=== PATIENT | female | born 1940 | race Caucasian/White ===

== ENCOUNTER 2022-05-29 13:41 | Outpatient (CLI) | payer MEDICARE, SELFPAY ==
[2022-05-29 10:33] LABS: Chloride* 101 mmol/L (96-114); Potassium* 3.8 mmol/L (3.6-5.1); Sodium* 138 mmol/L (135-149)
[2022-05-29 10:35] LABS: Cholesterol* 207 mg/dL (90-199)
[2022-05-29 10:36] LABS: Blood Urea Nitrogen* 19 mg/dL (7-30); Calcium* 10.3 mg/dL (8.4-10.6); Carbon Dioxide* 28 mmol/L (20-32); Creatinine* 0.9 mg/dL (0.5-1.5); Estimated Glomerular Filt Rate 65 ml/min; Glucose* 112 mg/dL (60-115); Triglycerides* 128 mg/dL (40-149)
[2022-05-29 10:37] LABS: HDL Cholesterol* 73 mg/dL (>=50); LDL Cholesterol Calculated 108 mg/dL (<100)
== END 2022-05-29 13:42 | disposition home or self-care (01) ==
PROVIDERS: PCP Family Medicine; Visit Provider Family Medicine
DX: E78.00 Pure hypercholesterolemia, unspecified (principal); I10 Essential (primary) hypertension; M81.0 Age-related osteoporosis without current pathological fracture
CPT/HCPCS: 80048; 80061

== ENCOUNTER 2022-06-19 09:48 | Outpatient (RCR) | payer MEDICARE, SELFPAY ==
[2022-06-19 10:02] VITALS: BP 110/71; PULSE 78; RESP 16; TEMP 36.4; O2SAT 94
[2022-06-19] MEDS: DENOSUMAB 60 MG/ML SYRINGE SUBCUT (10:24)
--- NOTE | 2022-12-09 10:07 | ONC.NURNOTE ---
Pt called requesting to schedule labs/Prolia. LM for Dr. Fuentes to send updated orders.
== END 2022-12-16 23:59 | disposition home or self-care (01) ==
LOC: CCIC 09:48
PROVIDERS: PCP Family Medicine; Referring Provider Family Medicine; Visit Provider Family Medicine
DX: M81.0 Age-related osteoporosis without current pathological fracture (principal)
CPT/HCPCS: 96372; J0897

== ENCOUNTER 2022-12-11 07:55 | Outpatient (CLI) | payer MEDICARE, SELFPAY ==
--- NOTE | 2022-12-11 08:15 | CRLHL7_ITS ---
For Patients: As a result of the Century Cures Act, medical imaging exams and procedure reports are released immediately into your electronic medical record. You may view this report before your referring provider. If you have questions, please contact your health care provider. BILATERAL SCREENING MAMMOGRAM WITH COMPUTER-AIDED DETECTION AND TOMOSYNTHESIS TECHNIQUE: CC and MLO views were obtained. These mammographic images have been obtained using full-field digital technique. These mammographic images were interpreted with the benefit of computer-aided detection. Breast Tomosynthesis was used in this interpretation. COMPARISON FILM: 12/05/21, 12/04/20, 05/18/19. FINDINGS: The breasts are heterogeneously dense, which may obscure small masses IMPRESSION: There is no radiographic evidence for malignancy. ASSESSMENT: BI-RADS Category 1: Negative RECOMMENDATION: Routine screening mammogram in 1 year. A lay language report of this examination will be provided to the patient. Hrei Rollins M.D. Diagnostic Radiologist [email or web address] KAILEY/Dictated by: Heri Rollins MD @ 12/11/2022 12:29:00 PM (Electronically Signed)
== END 2022-12-11 07:56 | disposition home or self-care (01) ==
LOC: MAMMO 07:57
PROVIDERS: PCP Family Medicine; Visit Provider Family Medicine
DX: Z12.31 Encounter for screening mammogram for malignant neoplasm of breast (principal); R92.2 Inconclusive mammogram
CPT/HCPCS: 77063; 77067

== ENCOUNTER 2022-12-24 10:55 | Emergency (ER) | payer OTHER, MEDICARE, SELFPAY ==
[2022-12-24] VITALS (41 sets, daily range): BP systolic 125–161; BP diastolic 59–133; PULSE 65–81; O2SAT 91–97
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
--- NOTE | 2022-12-24 11:49 | ED.NURSE ---
and son at bedside
[2022-12-24 11:53] LABS: Basophils Absolute Auto 0.05 K/uL (0.00-0.30); Basophils Percent Auto 0.8 % (0.0-3.0); Eosinophils Absolute Auto 0.08 K/uL (0.00-0.50); Eosinophils Percent Auto 1.2 % (0.0-7.0); Hematocrit 41.6 % (33.0-51.0); Hemoglobin* 13.6 gm/dL (12.0-16.0); Immature Granulocytes Abs Auto 0.08 K/uL (0.00-0.30); Immature Granulocytes Pct Auto 1.2 %; Lymphocytes Percent Auto 13.4 % (20-44); Mean Corpuscular HGB Conc 33 gm/dL (32-36); Mean Corpuscular Hemoglobin 29 pg (26-34); Mean Corpuscular Volume 89 fL (80-100); Monocytes Percent Auto 7.5 % (0.0-11.0); Neutrophils Percent Auto 75.9 % (42.0-72.0); Platelet Count* 158 K/uL (140-440); RDW Coefficient of Variation % 14.5 % (11.5-15.5); Red Blood Count 4.69 m/uL (4.00-5.20); White Blood Count* 6.41 K/uL (4.50-11.00)
[2022-12-24 11:54] LABS: Slide Review Reflex No
[2022-12-24 12:59] LABS: Chloride* 103 mmol/L (96-114); Potassium* 3.5 mmol/L (3.6-5.1); Sodium* 141 mmol/L (135-149)
[2022-12-24 13:02] LABS: Blood Urea Nitrogen* 13 mg/dL (7-30); Calcium* 9.2 mg/dL (8.4-10.6); Carbon Dioxide* 32 mmol/L (20-32); Creatinine* 0.8 mg/dL (0.5-1.5); Estimated Glomerular Filt Rate 74 ml/min; Glucose* 95 mg/dL (60-115)
--- NOTE | 2022-12-24 13:16 | ED.NURSE ---
This development writer assessed pt for pain after assisting her to use the bedpan. Pt states she has pain in her neck at 6/10 with movement. Denies pain when remaining still. Pt stated she did not want pain medication at this time. This development writer will continue to reassess.
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
--- NOTE | 2022-12-24 15:45 | ED.NURSE ---
C-collar removed by Dr. Philip.
[2022-12-24] MEDS: HYDROmorphone 0.5 mg/0.5 ml inj 0.2 MG IVP (15:54)
== END 2022-12-24 19:35 | disposition home or self-care (01) ==
PROVIDERS: Emergency Provider Emergency Medicine Emergency Medical Services; PCP Family Medicine
DX: M54.2 Cervicalgia (principal); V43.62XA Car passenger injured in collision with other type car in traffic accident, initial encounter
CPT/HCPCS: 36415; 70450; 71260; 72125; 72146; 74177; 80048; 85025; 93005; 99284; 99285; 99291; G0390; J1170; Q9967

== ENCOUNTER 2023-01-09 09:06 | Outpatient (RCR) | payer MEDICARE, SELFPAY ==
--- NOTE | 2022-12-31 11:45 | URNOTE ---
REceived request for prior auth for [employer] ([id number]). Pt has medicare and AARP supplement. Prior authorization is not required as services are based on medical necessity and follow medicare guidelines
[2023-01-09 09:16] VITALS: BP 122/77; PULSE 87; RESP 16; TEMP 36.2; O2SAT 94
[2023-01-09] MEDS: DENOSUMAB 60 MG/ML SYRINGE SUBCUT (09:40)
== END 2023-07-08 23:59 | disposition home or self-care (01) ==
LOC: CCIC 09:06
PROVIDERS: PCP Family Medicine; Referring Provider Family Medicine; Visit Provider Family Medicine
DX: M81.0 Age-related osteoporosis without current pathological fracture (principal)
CPT/HCPCS: 96372; J0897

== ENCOUNTER 2023-04-20 09:27 | Inpatient (IN) | payer MEDICARE, SELFPAY ==
[2023-04-20] VITALS (8 sets, daily range): BP systolic 124–134; BP diastolic 62–99; PULSE 63–91; RESP 14–18; TEMP 36.1–36.7; O2SAT 92–98; BMI 25.7
--- NOTE | 2023-04-20 10:10 | CRLHL7_ITS ---
For Patients: As a result of the Century Cures Act, medical imaging exams and procedure reports are released immediately into your electronic medical record. You may view this report before your referring provider. If you have questions, please contact your health care provider. INDICATION: Abdominal pain, weakness. History of kidney stones, appendectomy, cholecystectomy. TECHNIQUE: CT of the abdomen and pelvis without intravenous contrast. Coronal and sagittal reconstructions. COMPARISON: CT chest, abdomen, pelvis 12/24/2022. FINDINGS: The unenhanced liver, spleen, pancreas, and adrenal glands are normal in appearance. Cholecystectomy. No biliary dilation. Bilateral renal cortical scarring. No hydronephrosis or ureteral dilation. No obstructing urinary calculi identified, however the distal ureters and pelvic structures are obscured by extensive streak artifact. Tiny bilateral nonobstructing renal caliceal stones. The visualized bladder demonstrates no significant wall thickening. Small calcified uterine fibroid. No obvious adnexal mass. No small bowel dilation. Mild amount of stool throughout the colon. Appendectomy. No intraperitoneal free air or fluid. No lymphadenopathy. Aortoiliac vascular calcifications. Small fat containing umbilical hernia. Degenerative changes of the spine. Chronic superior endplate compression fracture of T11. Mild anterolisthesis of L4 on L5. Bilateral total hip arthroplasties. The lung bases are clear. IMPRESSION: 1. No acute findings in the abdomen or pelvis on this noncontrast exam. 2. Tiny bilateral nonobstructing renal caliceal stones. No hydronephrosis. 3. Pelvic structures are suboptimally visualized due to extensive streak artifact from bilateral hip hardware. Please note that all CT scans at this facility use dose modulation, iterative reconstruction, and/or weight-based dosing when appropriate to reduce radiation dose to as low as reasonably achievable. Dictated by Ivone Watts MD @ 04/20/2023 2:46:45 PM (Electronically Signed)
[2023-04-20] MEDS: 0.9 % SODIUM CHLORIDE 500 ML 500 ML IV (11:10)
--- NOTE | 2023-04-20 11:11 | ED_ITS ---
HPI - General Adult General Date Seen: 04/20/23 Chief complaint: Weakness Stated complaint: several falls / confused Time Seen by Provider: 04/20/23 09:38 Source: patient and family Mode of arrival: ambulatory Limitations: no limitations History of Present Illness HPI narrative: Patient is an 82-year-old here with son and for evaluation of abdominal pain weakness mild confusion for the past several days. Problems started on , they present on Thursday. She has had several falls, has not had any injuries. She says she has had pain across her abdomen, decreased appetite. No vomiting. No fevers. No diarrhea. No black or bloody stools. She has a history of cholecystectomy and appendectomy, has had remote colonoscopy with polyps no other findings. Falls have been caused by loss of balance. She has been able to walk with a walker but despite the walker she has had several falls. This is unusual for her according to family. They note that she has seemed more confused as well, she is able to provide a reasonable history for me, answers questions appropriately. She has chronic pain in her right hip, I do see a prior history of trochanteric bursitis. Related Data Home Medications Medication Instructions Recorded Confirmed aspirin 81 mg chewable tablet 1 tab PO DAILY 08/22/22 03/17/23 cholecalciferol (vitamin D3) 25 1,000 unit PO BID 08/22/22 03/17/23 mcg (1,000 unit) capsule denosumab 60 mg/mL subcutaneous 60 mg subcut DIRECTED 08/22/22 03/17/23 syringe multivitamin 1 tab PO QAM 08/22/22 03/17/23 antiarthritic combination no.2 900 900 mg PO QDAY 10/01/22 03/17/23 mg tablet (glucosamine-chondroitin) calcium carbonate 500 mg calcium 500 mg PO BID 10/01/22 03/17/23 (1,250 mg) chewable tablet (Calcium 500) Previous Rx's Medication Instructions Recorded lovastatin 20 mg tablet 20 mg PO QDAY #90 tabs 06/09/22 cyclobenzaprine 10 mg tablet 10 mg PO TID #15 tabs 12/24/22 gabapentin 300 mg capsule 300 - 600 mg (1 - 2 x 300 mg) PO 01/19/23 QID #450 caps zolpidem 10 mg tablet 10 mg PO QHS PRN sleep #30 tabs 01/23/23 paroxetine HCl 20 mg tablet (Paxil) 20 mg PO QDAY #30 tabs 02/12/23 finasteride 5 mg tablet 2.5 mg (1/2 x 5 mg) PO QDAY #45 03/24/23 tabs Allergies Allergy/AdvReac Type Severity Reaction Status Date / Time No Known Drug Allergies Allergy Verified 03/17/23 11:30 Review of Systems Status of ROS: Reports: 10 or more systems reviewed and unremarkable except as noted in History and below [facility] Medical History (Updated 03/24/23 @ 10:20 by Terri Brice ~ PLATEMAKER, PLATEMAKER) Hair loss ?L65.9 - Nonscarring hair loss, unspecified (ICD-10) Health care directive on file ?Z78.9 - Other specified health status (ICD-10) Bilateral primary osteoarthritis of knee ?M17.0 - Bilateral primary osteoarthritis of knee (ICD-10) Hypertension ?I10 - Essential (primary) hypertension (ICD-10) Peripheral neuropathy ?G62.9 - Polyneuropathy, unspecified (ICD-10) History of colonic polyps ?Z86.010 - Personal history of colonic polyps (ICD-10) Generalized anxiety disorder ?F41.1 - Generalized anxiety disorder (ICD-10) Gastroesophageal reflux disease ?K21.9 - Gastro-esophageal reflux disease without esophagitis (ICD-10) Osteoporosis ?M81.0 - Age-related osteoporosis without current pathological fracture (ICD- 10) History of renal calculi ?Z87.442 - Personal history of urinary calculi (ICD-10) Major depression, recurrent ?F33.9 - Major depressive disorder, recurrent, unspecified (ICD-10) Hyperlipidemia ?E78.5 - Hyperlipidemia, unspecified (ICD-10) Insomnia ?G47.00 - Insomnia, unspecified (ICD-10) Chronic low back pain ?M54.50 - Low back pain, unspecified (ICD-10) ?G89.29 - Other chronic pain (ICD-10) Surgical History (Updated 10/13/22 @ 16:30 by Danielle Rain ~ DRAFTING ENGINEER, DRAFTING ENGINEER) History of hemilaminectomy (08/13/04) ?Z98.890 - Other specified postprocedural states (ICD-10) History of total hip replacement (2009) ?Z96.649 - Presence of unspecified artificial hip joint (ICD-10) History of cholecystectomy (04/2011) ?Z90.49 - Acquired absence of other specified parts of digestive tract (ICD- 10) History of cervical spinal arthrodesis (01/23/14) ?Z98.1 - Arthrodesis status (ICD-10) History of shoulder surgery (10/2010) ?Z98.890 - Other specified postprocedural states (ICD-10) History of lumbar surgery (2004) ?Z98.890 - Other specified postprocedural states (ICD-10) History of lithotripsy ?Z98.890 - Other specified postprocedural states (ICD-10) History of section ?Z98.891 - History of uterine scar from previous surgery (ICD-10) History of bunionectomy of right great toe (1999) ?Z98.890 - Other specified postprocedural states (ICD-10) History of appendectomy (2009) ?Z90.49 - Acquired absence of other specified parts of digestive tract (ICD- 10) Social History (Updated 08/23/22 @ 16:23 by Heri Fuentes MD) Narrative: , retired, non-smoker, three kids Smoking Status: Never smoker Do you use any of these nicotine containing products: None How often do you have a drink containing alcohol: never AUDIT-C Alcohol total score: 0 Non-prescribed substance use: denies use Little interest or pleasure in doing things: not at all Feeling down, depressed, or hopeless: not at all Exam Narrative: Exam Narrative: Vital signs as noted above. In general, an alert, nontoxic elderly woman. Head: Normocephalic, atraumatic. Eyes: Pupils are equal reactive. Extraocular movements are full. Conjunctivae are normal. ENT: Mucous membranes are moist. Neck: Supple without lymphadenopathy. Heart: Regular rate and rhythm. No murmur or rub. Lungs: Clear bilaterally. No increased work of breathing, crackles or wheezes. Abdomen: Soft and nondistended. Diffuse mild tenderness without rebound guarding or rigidity. Extremities: Well perfused. No edema. No calf tenderness. Pulses intact. Neurologic: Patient is alert and oriented to person and place. Speech is fluent. Face is symmetric. Moves all extremities equally. Affect: Normal. Skin: Warm and dry. Well perfused. Const: Vital Signs, click to edit/add: Vital Signs - 24 hr 04/20/23 09:37 04/20/23 12:00 04/20/23 13:30 Temperature 97.2 F L Pulse Rate [Right Pulse Oximeter] 91 85 89 Respiratory Rate 18 14 14 Blood Pressure [Ri ght Upper Arm] 134/84 125/74 133/99 H Pulse Oximetry 98 98 97 Oxygen Delivery Me thod Room Air Room Air Documenting provider has reviewed patient's vital signs: yes Course Course ED Course: Will go ahead and place an IV, hydrate with a 1000 mL of normal saline. Labs are ordered, will do CT scan to evaluate for possible diverticulitis, colitis, obstruction, etcetera. UA is pending. COVID is pending. Patient had an EKG which showed a normal sinus rhythm with a ventricular rate of 69 beats per minute, nonspecific T changes without ST segment changes. Initial lab results were pretty unremarkable, white blood cell count was normal, hemoglobin was 14.6. Initial electrolytes showed a sodium of 137 and a potassium of 3.1, BUN was slightly elevated at 44 and creatinine was mildly elevated 1.7, baseline unknown. Lactate was 1.2. It was slightly delayed but her calcium eventually came back at 16.9. LFTs were unremarkable. CRP was 1.8. Albumin notably was normal at 4.4. TSH was normal at 2.5. PTH was added on and is pending. UA fairly unremarkable, 2-5 red cells and 5-10 white blood cells, few squames. COVID was negative. Point of care troponin was 0.02. She was initially given a L normal saline and I added on a 2 L after seeing her calcium and gave her 20 mg of Lasix IV. I did talk with the hospitalist at that point, discussed calcitonin but will hold off until she gets to the floor. Etiology of her hypercalcemia is unknown. Because her GFR was only 30 she had a noncontrast CT scan of her abdomen and pelvis. By my review I did not see any significant findings. Fair portion of her pelvis is not visualized secondary to artifact from her bilateral hip arthrosis. Her again brought up to me that she has had this right hip pain, this sounds to have been going on for quite some time, and again, she is status post right hip replacement, has this history of bursitis, I do not know if that is the cause for her right hip pain or not, but reviewed with him that since this is chronic, we have not delved into this in the ER. Again there is quite a bit of artifact on the CT scan but scrolling through the bony pelvis as seen on the CT I do not see any significant findings. Patient will be admitted for treatment and further evaluation of significant hypercalcemia. Vital Signs Vital signs: Initial Vital Signs Temperature 97.2 F L 04/20/23 09:37 Temperature Source Temporal Artery Scan 04/20/23 09:37 Pulse Rate 91 04/20/23 09:37 Respiratory Rate 18 04/20/23 09:37 Blood Pressure 134/84 04/20/23 09:37 Blood Pressure Mean 100 04/20/23 09:37 Blood Pressure Position Sitting 04/20/23 09:37 Pulse Oximetry 98 04/20/23 09:37 Oxygen Delivery Method Room Air 04/20/23 09:37 Vital Signs Temperature 97.2 F L 04/20/23 09:37 Pulse Rate 91 04/20/23 09:37 Respiratory Rate 18 04/20/23 09:37 Blood Pressure 134/84 04/20/23 09:37 Pulse Oximetry 98 04/20/23 09:37 Oxygen Delivery Method Room Air 04/20/23 09:37 Temperature 97.2 F L 04/20/23 09:37 Pulse Rate 89 04/20/23 13:30 Respiratory Rate 14 04/20/23 13:30 Blood Pressure 133/99 H 04/20/23 13:30 Pulse Oximetry 97 04/20/23 13:30 Oxygen Delivery Method Room Air 04/20/23 13:30 Medical Decision Making Lab Data Labs: Lab Results 04/20/23 04/20/23 04/20/23 Range/Units 10:47 11:12 11:45 WBC 8.35 (4.50-11.00) K/uL RBC 5.01 (4.00-5.20) m/uL Hgb 14.6 (12.0-16.0) gm/dL Hct 44.1 (33.0-51.0) % MCV 88 (80-100) fL MCH 29 (26-34) pg MCHC 33 (32-36) gm/dL RDW Coeff of Jo-Ann 12.8 (11.5-15.5) % Plt Count 167 (140-440) K/uL Neut % (Auto) 77.0 H (42.0-72.0) % Lymph % (Auto) 12.0 L (20-44) % [place] % (Auto) 9.9 (0.0-11.0) % Eos % (Auto) 0.6 (0.0-7.0) % Baso % (Auto) 0.4 (0.0-3.0) % Neut # (Auto) 6.40 (1.7-7.0) K/uL Lymph # (Auto) 1.00 (0.90-2.90) K/uL [place] # (Auto) 0.80 (0.00-0.90) K/UL Eos # (Auto) 0.05 (0.00-0.50) K/uL Baso # (Auto) 0.03 (0.00-0.30) K/uL Abs Immat Gran (auto) 0.01 (0.00-0.30) K/uL Imm/Tot Granulo (auto) 0.1 % Sodium 137 (135-149) mmol/L Potassium 3.1 L (3.6-5.1) mmol/L Chloride 98 (96-114) mmol/L Carbon Dioxide 33 H (20-32) mmol/L Anion Gap 6 L (7-15) mEq/L BUN 44 H (7-30) mg/dL Creatinine 1.7 H (0.5-1.5) mg/dL Estimated GFR 30 ml/min Glucose 110 (60-115) mg/dL Lactate 1.2 (0.5-1.9) mmol/L Calcium 16.9 H* (8.4-10.6) mg/dL Ionized Calcium Mary 2.06 H (1.11-1.30) mmol/L Total Bilirubin 1.2 (0.1-1.5) mg/dL Direct Bilirubin 0.1 (0.0-0.5) mg/dL AST 26 (12-35) U/L ALT 20 (4-35) U/L Alkaline Phosphatase 72 (40-150) U/L C-Reactive Protein 1.8 H (0.5-1.0) mg/dL Total Protein 7.6 (6.0-8.3) g/dL Albumin 4.4 (3.3-5.0) g/dL Lipase 98 (23-300) U/L TSH 2.580 (0.270-4.200) uIU/mL Urine Color Light yellow (Yellow) Urine Appearance Slightly Cloudy A (Clear) Urine pH 7.0 (5.0-8.5) Ur Specific [place] 1.020 (1.000-1.030) Urine Protein Negative (Negative) Urine Glucose (UA) Negative (Negative) Urine Ketones Negative (Negative) Urine Blood Trace-lysed A (Negative) Urine Nitrite Negative (Negative) Urine Bilirubin Negative (Negative) Urine Urobilinogen 0.2 (0.2-1.0) Ur Leukocyte Esterase Trace A (Negative) Urine RBC 2-5 A (0-2) Urine WBC 5-10 A (0-5) Ur Squamous Epith Cells Few (None-Few) Amorphous Sediment Moderate A (None) Urine Bacteria None (None) SARS-CoV-2 (PCR) Negative SARS-CoV-2 (Negative) POC Troponin I 0.02 (0.01-0.04) ng/ml
[2023-04-20] MEDS: MORPHINE 4 MG/ML INJ 2 MG IVP (11:12)
[2023-04-20 11:26] LABS: Lactate Sepsis w/Reflex* 1.2 mmol/L (0.5-1.9); Troponin, Point-of-Care* 0.02 ng/ml (0.01-0.04)
[2023-04-20 11:44] LABS: Albumin* 4.4 g/dL (3.3-5.0); Chloride* 98 mmol/L (96-114); Potassium* 3.1 mmol/L (3.6-5.1); Sodium* 137 mmol/L (135-149)
[2023-04-20 11:46] LABS: SARS PCR* Negative SARS-CoV-2 (Negative)
[2023-04-20 11:46] LABS: Creatinine* 1.7 mg/dL (0.5-1.5); Estimated Glomerular Filt Rate 30 ml/min; Lipase* 98 U/L (23-300)
[2023-04-20 11:47] LABS: Alkaline Phosphatase* 72 U/L (40-150); Anion Gap 6 mEq/L (7-15); Aspartate Amino Transferase* 26 U/L (12-35); Basophils Absolute Auto 0.03 K/uL (0.00-0.30); Basophils Percent Auto 0.4 % (0.0-3.0); Bilirubin Direct* 0.1 mg/dL (0.0-0.5); Bilirubin Total* 1.2 mg/dL (0.1-1.5); Blood Urea Nitrogen* 44 mg/dL (7-30); Carbon Dioxide* 33 mmol/L (20-32); Eosinophils Absolute Auto 0.05 K/uL (0.00-0.50); Eosinophils Percent Auto 0.6 % (0.0-7.0); Glucose* 110 mg/dL (60-115); Hematocrit 44.1 % (33.0-51.0); Hemoglobin* 14.6 gm/dL (12.0-16.0); Immature Granulocytes Abs Auto 0.01 K/uL (0.00-0.30); Immature Granulocytes Pct Auto 0.1 %; Mean Corpuscular HGB Conc 33 gm/dL (32-36); Mean Corpuscular Hemoglobin 29 pg (26-34); Mean Corpuscular Volume 88 fL (80-100); Monocytes Percent Auto 9.9 % (0.0-11.0); Platelet Count* 167 K/uL (140-440); RDW Coefficient of Variation % 12.8 % (11.5-15.5); Red Blood Count 5.01 m/uL (4.00-5.20); Total Protein* 7.6 g/dL (6.0-8.3); White Blood Count* 8.35 K/uL (4.50-11.00)
[2023-04-20 11:48] LABS: Slide Review Reflex No
[2023-04-20 11:50] LABS: C Reactive Protein* 1.8 mg/dL (0.5-1.0)
[2023-04-20 12:11] LABS: Appearance Urine Slightly Cloudy (Clear); Bilirubin Urine Negative (Negative); Blood Urine Trace-lysed (Negative); Color Urine Light yellow (Yellow); Glucose Urine Negative (Negative); Ketones Urine Negative (Negative); Leukocyte Esterase Urine Trace (Negative); Nitrite Urine Negative (Negative); Protein Urine Negative (Negative); Urobilinogen Urine 0.2 (0.2-1.0)
[2023-04-20 12:29] LABS: Alanine Aminotransferase* 20 U/L (4-35)
[2023-04-20 12:42] LABS: Calcium* 16.9 mg/dL (8.4-10.6)
[2023-04-20 12:49] LABS: Amorphous Sediment Urine Moderate; Squamous Epithelial Cell Urine Few (None-Few)
[2023-04-20] MEDS: POTASSIUM BICARB 25 MEQ EFFERVESCENT TAB 50 MEQ PO (12:49)
[2023-04-20 13:19] LABS: Ionized Calcium* 2.06 mmol/L (1.11-1.30)
--- NOTE | 2023-04-20 13:41 | ED.NURSE ---
Report given to JOHNATHON Salguero.
[2023-04-20] MEDS: FUROSEMIDE 10 MG/ML inj 20 MG IVP (13:44)
--- NOTE | 2023-04-20 15:35 | P.IMHP_ITS ---
Hospitalist- H&P: HPI History of Present Illness Time Seen by Provider: 15:00 Date Seen: 04/20/23 Chief complaint: several falls / confused / hypercalcemia Narrative: Saurabh Ribera is a 82 year old woman was in her usual state of health up until about 7-10 days ago. Since then she, her , and 1 of their daughters have noticed that she has become increasingly confused, with scattered thoughts and inability to articulate her thoughts, speaking more slowly and softly, decreased appetite, increased weakness, moving more slowly, more unsteady on her feet, to the point of having had for falls in the last 5 days, 1 fall on in than 2 falls on either Thursday or Thursday on 1 fall in the other day. She has had no injury from these falls. No loss of consciousness. Denies fevers, rigors, diaphoresis. Denies night sweats or weight loss. Denies tremor, asterixis, or ataxia. Decreased interest in eating but still trying to drink water. Denies dysuria, urgency, frequency, hematuria. Acknowledges history of kidney stones, she thinks they were calcium stones, but has been asymptomatic from these for at least 5 years now. Acknowledges history of thyroid nodule which was found and tracked with serial imaging for about 2 years before they recommended that she need not have ongoing assessments of this because there is no changes in the size of the thyroid nodule. Moved to [place], [place], only 3 years ago to be closer to family. Prior to that lived elsewhere. Review of Systems Status of ROS: Reports: 10 or more systems reviewed and unremarkable except as noted in History and below Narrative: Longstanding right hip pain. Status post bilateral total hip arthroplasties, the right was in 2004. Did well for a number of years until the last 10 years when the right hip is becoming increasingly painful. She has been told more than once that she has bursitis of her hip. Still has this and it is not any worse or better than it has been over the last few years. Denies any other pains associated with the falls that she sustained over the last few days. Patient notes she has had more difficulty swallowing at times. Denies aspiration or gagging. Lives with her in [place]. They have 3 children and 6 grandchildren. She requests DNR DNI resuscitation status. She designates her , Clarence, as her power of marine equipment preservation inspector for health should that be required. Does not use tobacco products or alcoholic beverages. Denies the use of any street or recreational drugs. Primary care physician is Dr. Heri Fuentes. [facility] Medical History Hair loss ?L65.9 - Nonscarring hair loss, unspecified (ICD-10) Health care directive on file ?Z78.9 - Other specified health status (ICD-10) Bilateral primary osteoarthritis of knee ?M17.0 - Bilateral primary osteoarthritis of knee (ICD-10) Hypertension ?I10 - Essential (primary) hypertension (ICD-10) Peripheral neuropathy ?G62.9 - Polyneuropathy, unspecified (ICD-10) History of colonic polyps ?Z86.010 - Personal history of colonic polyps (ICD-10) Generalized anxiety disorder ?F41.1 - Generalized anxiety disorder (ICD-10) Gastroesophageal reflux disease ?K21.9 - Gastro-esophageal reflux disease without esophagitis (ICD-10) Osteoporosis ?M81.0 - Age-related osteoporosis without current pathological fracture (ICD- 10) History of renal calculi ?Z87.442 - Personal history of urinary calculi (ICD-10) Major depression, recurrent ?F33.9 - Major depressive disorder, recurrent, unspecified (ICD-10) Hyperlipidemia ?E78.5 - Hyperlipidemia, unspecified (ICD-10) Insomnia ?G47.00 - Insomnia, unspecified (ICD-10) Chronic low back pain ?M54.50 - Low back pain, unspecified (ICD-10) ?G89.29 - Other chronic pain (ICD-10) Surgical History History of hemilaminectomy (08/13/04) ?Z98.890 - Other specified postprocedural states (ICD-10) History of total hip replacement (2009) ?Z96.649 - Presence of unspecified artificial hip joint (ICD-10) History of cholecystectomy (04/2011) ?Z90.49 - Acquired absence of other specified parts of digestive tract (ICD- 10) History of cervical spinal arthrodesis (01/23/14) ?Z98.1 - Arthrodesis status (ICD-10) History of shoulder surgery (10/2010) ?Z98.890 - Other specified postprocedural states (ICD-10) History of lumbar surgery (2004) ?Z98.890 - Other specified postprocedural states (ICD-10) History of lithotripsy ?Z98.890 - Other specified postprocedural states (ICD-10) History of section ?Z98.891 - History of uterine scar from previous surgery (ICD-10) History of bunionectomy of right great toe (1999) ?Z98.890 - Other specified postprocedural states (ICD-10) History of appendectomy (2009) ?Z90.49 - Acquired absence of other specified parts of digestive tract (ICD- 10) Social History Narrative: , retired, non-smoker, three kids Smoking Status: Never smoker Do you use any of these nicotine containing products: None How often do you have a drink containing alcohol: never AUDIT-C Alcohol total score: 0 Non-prescribed substance use: denies use Little interest or pleasure in doing things: not at all Feeling down, depressed, or hopeless: not at all Meds Home Medications and Allergies Home Medications Medication Instructions Recorded Confirmed Type aspirin 81 mg chewable tablet 1 tab PO DAILY 08/22/22 04/20/23 History cholecalciferol (vitamin D3) 25 1,000 unit PO BID 08/22/22 04/20/23 History mcg (1,000 unit) capsule denosumab 60 mg/mL subcutaneous 60 mg subcut DIRECTED 08/22/22 04/20/23 History syringe multivitamin 1 tab PO QAM 08/22/22 04/20/23 History antiarthritic combination no.2 900 900 mg PO QDAY 10/01/22 04/20/23 History mg tablet (glucosamine-chondroitin) calcium carbonate 500 mg calcium 500 mg PO BID 10/01/22 04/20/23 History (1,250 mg) chewable tablet (Calcium 500) finasteride 5 mg tablet 2.5 mg PO DAILY 04/20/23 04/20/23 History lovastatin 20 mg tablet 20 mg PO DAILY 04/20/23 04/20/23 History paroxetine HCl 20 mg tablet (Paxil) 20 mg PO DAILY 04/20/23 04/20/23 History zolpidem 10 mg tablet 10 mg PO HS PRN sleep 04/20/23 04/20/23 History Home Medication Comments: She believes the denosumab is due shortly. Has never had hypocalcemia in association with the use of denosumab. Allergies Allergy/AdvReac Type Severity Reaction Status Date / Time No Known Drug Allergies Allergy Verified 03/17/23 11:30 Exam Narrative: Exam Narrative: I examined the patient in the hospital room with her . Appears comfortable and in no acute distress. Appears thin with protuberant bony prominences. Vision and hearing are grossly normal. Speech is soft. Difficulty formulating her thoughts. Cannot remember the past code to open her cell phone. Alert and oriented to self, place, and in part to time and situation. Friendly, articulate, cooperative. Mood and affect are congruent. External auditory canals and tympanic membranes normal bilaterally. Midline nasal septum. Dry buccal mucosa. Dentition in fair repair. Pupils equally round and reactive to light and accommodation. Extraocular muscles are intact. No icterus. Midline trachea. Possible mild asymmetry of thyroid on the right. No JVD or hepatojugular reflux. No carotid bruits. No head and neck lymphadenopathy. No axillary lymphadenopathy. Lungs are clear to auscultation without wheezing, rhonchi, or rales. Chest wall excursions are full. No CVA tenderness. Heart tones with regular rhythm, normal S1-S2, without murmur, gallop, or rub. PMI not laterally displaced. Abdomen with active bowel sounds, soft, nontender. No organomegaly or masses. No rebound or guarding. Extremities without edema. Capillary refill less than 3 seconds in upper and lower extremities. No focal motor neurologic deficits. Independent in transfer and station. I did not examine her walking today. Const: Vital Signs, click to edit/add: Vital Signs - 24 hr 04/20/23 09:37 04/20/23 12:00 04/20/23 13:30 Temperature 97.2 F L Pulse Rate [Right Pulse Oximeter] 91 85 89 Respiratory Rate 18 14 14 Blood Pressure [Ri ght Upper Arm] 134/84 125/74 133/99 H Pulse Oximetry 98 98 97 Oxygen Delivery Me thod Room Air Room Air Documenting provider has reviewed patient's vital signs: yes Hospitalist - H&P: Result Labs Labs: Short CBC 04/20/23 Range/Units 11:12 WBC 8.35 (4.50-11.00) K/uL Hgb 14.6 (12.0-16.0) gm/dL Hct 44.1 (33.0-51.0) % Plt Count 167 (140-440) K/uL BMP 04/20/23 11:12 Sodium 137 Potassium 3.1 L Chloride 98 Carbon Dioxide 33 H BUN 44 H Creatinine 1.7 H Glucose 110 Calcium 16.9 H* Liver Function 04/20/23 Range/Units 11:12 Total Bilirubin 1.2 (0.1-1.5) mg/dL Direct Bilirubin 0.1 (0.0-0.5) mg/dL AST 26 (12-35) U/L ALT 20 (4-35) U/L Alkaline Phosphatase 72 (40-150) U/L Albumin 4.4 (3.3-5.0) g/dL Urine 04/20/23 Range/Units 11:45 Urine Color Light yellow (Yellow) Urine Appearance Slightly Cloudy A (Clear) Urine pH 7.0 (5.0-8.5) Ur Specific [place] 1.020 (1.000-1.030) Urine Protein Negative (Negative) Urine Glucose (UA) Negative (Negative) Imaging CT scan of abdomen and pelvis: Attestation: I have reviewed the pertinent imaging results. Radiologist's impression: 04/20/2023 IMPRESSION: 1. No acute findings in the abdomen or pelvis on this noncontrast exam. 2. Tiny bilateral nonobstructing renal caliceal stones. No hydronephrosis. 3. Pelvic structures are suboptimally visualized due to extensive streak artifact from bilateral hip hardware. Assessment and Plan Assessment and plan (1) Hypercalcemia: Problem comment: 04/20/2023 serum calcium 16.4. December 2022 serum calcium 9.3. Etiology not yet determined. Assessing to see if it is parathyroid mediated versus non parathyroid mediated. Doubt medication induced. Consider endocrine mediated. Status: Acute (2) Metabolic encephalopathy: Problem comment: Most likely related to hypercalcemia. Status: Acute (3) Weakness: Status: Acute (4) Frequent falls: Status: Acute (5) Abnormal thyroid exam: Problem comment: Asymmetry on palpation. On 04/20/2023 TSH is 2.58 Status: Acute (6) Hypokalemia: Status: Acute Plan 1. Reviewed impression with patient and her , Clarence. 2. PTH studies have been sent for laboratory processing. Await results. 3. Normal saline bolus. Normal saline maintenance infusion. Initiate zoledronic acid. 4. Potassium supplementation. 5. Serial laboratory studies. 6. Check ultrasound of the thyroid. 7. Continue with other supportive efforts. 8. Answered patient's questions and her 's questions to their satisfaction. 9. They are agreeable with above stated plans and recommendations. 10. Physical therapy and Occupational therapy to assess and treat. Have also asked for speech pathology to assess for swallowing.
--- NOTE | 2023-04-20 16:08 | US_ITS ---
Patient: ROSALIA GAN Facility:?[facility] Patient ID:?[id number] Site Patient ID:?[id number]. Site :?[id number] Study:?US-Thyroid -04/20/2023 5:33:38 PM Ordering Physician:Faustino Larios Final Report: INDICATION: Asymmetric thyroid, hypercalcemia. COMPARISON: None. TECHNIQUE: Grayscale and color ultrasound of the thyroid. FINDINGS: The thyroid parenchyma is overall homogeneous with normal vascularity. The right lobe measures 3.8 x 1.7 x 1.3 cm. The left lobe measures 2.8 x 1.1 x 1.5 cm. The isthmus is 0.1 cm in thickness. In the right mid posterior thyroid there is a nodule that measures 0.7 x 0.3 x 0.5 cm. It is predominantly cystic with a few internal echoes. There is increased through transmission. The lesion is not tolerated wide. The margins are smooth. There are internal punctate echogenic foci. 3 points, TR3. In the right inferior thyroid there is a nodule that measures 0.5 x 0.4 x 0.4 cm. It is solid with dense peripheral calcifications and shadowing. The margins are smooth. 5 points, TR4. Elsewhere in the right thyroid lobe there are scattered hypoechoic nodules measuring 2-4 mm, none of these very small nodules have worrisome features. No extrathyroidal masses or sonographically visible parathyroid adenomas. No worrisome appearing lymph nodes adjacent to the thyroid. IMPRESSION: 1. No extrathyroidal masses/visible parathyroid adenomas. 2. Thyroid nodules with TI-RADS classification of TR3and TR4. Given the size less than 1 cm, no specific imaging follow-up is recommended. Dictated by Cielo Raman MD @ 04/21/2023 7:53:22 AM Signed by:?Cielo Raman MD @04/21/2023 7:53:22 AM (Electronic Signature)
[2023-04-20] MEDS: 0.9 % SODIUM CHLORIDE 1000 ml 1,000 ML IV (17:31)
[2023-04-20] MEDS: ZOLEDRONIC ACID 4 MG in 0.9 % SODIUM CHLORIDE 100 ml 100 ML 420 MG IVPB (17:32)
[2023-04-20 18:40] LABS: Albumin* 4.1 g/dL (3.3-5.0); Chloride* 100 mmol/L (96-114); Potassium* 3.2 mmol/L (3.6-5.1); Sodium* 141 mmol/L (135-149)
[2023-04-20 18:43] LABS: Anion Gap 6 mEq/L (7-15); Blood Urea Nitrogen* 42 mg/dL (7-30); Carbon Dioxide* 35 mmol/L (20-32); Creatinine* 1.5 mg/dL (0.5-1.5); Est. Creatinine Clearance* 23.26; Estimated Glomerular Filt Rate 35 ml/min; Glucose* 103 mg/dL (60-115)
[2023-04-20] MEDS: 0.9 % SODIUM CHLORIDE 1000 ml 1,000 ML 125 ML IV (18:48)
[2023-04-20 19:02] LABS: Calcium* 15.6 mg/dL (8.4-10.6)
[2023-04-20] MEDS: LOVASTATIN 20 MG TABLET PO (20:53)
[2023-04-21] MEDS: 0.9 % SODIUM CHLORIDE 1000 ml 1,000 ML 125 ML IV (02:51)
[2023-04-21 03:00] VITALS: BP 148/74; PULSE 60; RESP 18; TEMP 36.3; O2SAT 94
[2023-04-21 06:35] LABS: HCO3 VBG 34 mmol/L (21-28); Lactate* 0.7 mmol/L (0.5-1.9); PCO2 VBG 57 mmHG (40-50); PO2 VBG 27.1 mmHG (25-47); pH VBG 7.393 (7.32-7.43)
--- NOTE | 2023-04-21 06:38 | PC.NURSE ---
End of shift: Confused but pleasant and cooperative. Pt is easily reoriented. VSS w/ sats >90% on RA. Pt only complains about minor discomfort in back and knees. Repositioned, pt stated relief. A1 w/ walker and gait belt.
[2023-04-21 06:48] LABS: Basophils Absolute Auto 0.04 K/uL (0.00-0.30); Basophils Percent Auto 0.6 % (0.0-3.0); Eosinophils Absolute Auto 0.06 K/uL (0.00-0.50); Hematocrit 37.9 % (33.0-51.0); Hemoglobin* 12.5 gm/dL (12.0-16.0); Immature Granulocytes Abs Auto 0.01 K/uL (0.00-0.30); Immature Granulocytes Pct Auto 0.2 %; Lymphocytes Percent Auto 15.8 % (20-44); Mean Corpuscular HGB Conc 33 gm/dL (32-36); Mean Corpuscular Hemoglobin 30 pg (26-34); Mean Corpuscular Volume 90 fL (80-100); Monocytes Percent Auto 10.9 % (0.0-11.0); Neutrophils Absolute Auto 4.48 K/uL (1.7-7.0); Neutrophils Percent Auto 71.5 % (42.0-72.0); Platelet Count* 154 K/uL (140-440); Red Blood Count 4.23 m/uL (4.00-5.20); White Blood Count* 6.26 K/uL (4.50-11.00)
[2023-04-21 06:51] LABS: Slide Review Reflex No
[2023-04-21 07:00] VITALS: BP 156/81; PULSE 73; RESP 16; TEMP 36.1; O2SAT 94; O2SAT 95
[2023-04-21 07:09] LABS: Chloride* 103 mmol/L (96-114)
[2023-04-21 07:10] LABS: Albumin* 3.7 g/dL (3.3-5.0); Potassium* 3.2 mmol/L (3.6-5.1); Sodium* 141 mmol/L (135-149)
[2023-04-21 07:12] LABS: Creatinine* 1.7 mg/dL (0.5-1.5); Est. Creatinine Clearance* 20.53; Estimated Glomerular Filt Rate 30 ml/min
[2023-04-21 07:13] LABS: Anion Gap 2 mEq/L (7-15); Blood Urea Nitrogen* 41 mg/dL (7-30); Carbon Dioxide* 36 mmol/L (20-32); Glucose* 94 mg/dL (60-115); Phosphorus* 2.7 mg/dL (2.5-4.5)
[2023-04-21 07:14] LABS: Magnesium* 1.9 mg/dL (1.5-2.6)
[2023-04-21 07:22] LABS: Calcium* 13.7 mg/dL (8.4-10.6)
--- NOTE | 2023-04-21 09:08 | PM.IMPN1 ---
Progress Note: A&P Assessment and plan (1) Hypercalcemia: Problem details: - calcium 16.4 on 04/20/23; normal 12/30. Unlikely iatrogenic. Awaiting PTH, SPEP - received Zolendronic acid on 04/20, also on IVFs - calcium improved to 13.7 on 04/21 Status: Acute (2) Metabolic encephalopathy: Problem details: - most likely related to hypercalcemia, OT and PT following - no focal neurological findings - low threshold for imaging if symptoms persist/worsen Status: Acute (3) Weakness: Problem details: - likely 2/2 hypercalcemia - therapies following Status: Acute (4) Abnormal thyroid exam: Problem details: - Asymmetry on palpation, TSH 2.58 on 04/20/23 - ultrasound reassuring 04/20/23 with formal radiology read below: IMPRESSION: 1. No extrathyroidal masses/visible parathyroid adenomas. 2. Thyroid nodules with TI-RADS classification of TR3and TR4. Given the size less than 1 cm, no specific imaging follow-up is recommended. Status: Acute (5) Hypokalemia: Problem details: - replace and follow Status: Acute Plan - per above - appreciate input from therapies regarding dispo planning - may be medically appropriate for d/c in 1-2 days - updated at bedside, questions answered Subjective Date Seen: 04/21/23 Interval history: Saurabh was admitted last night for weakness and AMS, found to have severe hypercalcemia. This morning, she is feeling a little better but is still confused. She has intermittent R sided back pain with radiculopathy, controlled with Tylenol. No other concerns for hospitalist team. Exam Narrative: Exam Narrative: GEN: Alert and nontoxic, sitting comfortably in bedside chair and eating breakfast HEENT: EOMIs bilaterally, no scleral icterus CV: RRR, No concerning murmurs R: LCTA bilaterally, no concerning wheezes. Air movement adequate Ext: wwp Skin: No concerning skin lesions or rashes on exposed skin Neuro: No focal deficits, no resting tremor Psych: Intermittent confusion, generally answering questions appropriately Const: Vital Signs, click to edit/add: Vital Signs - 24 hr 04/20/23 09:37 04/20/23 12:00 04/20/23 13:30 Temperature 97.2 F L Pulse Rate [Pulse Oximeter] Pulse Rate [Right Brachial] Pulse Rate [Right Pulse Oximeter] 91 85 89 Respiratory Rate 18 14 14 Blood Pressure [Ri ght Arm] Blood Pressure [Ri ght Upper Arm] 134/84 125/74 133/99 H Pulse Oximetry 98 98 97 Oxygen Delivery Me thod Room Air Room Air 04/20/23 14:05 04/20/23 14:05 04/20/23 15:00 Temperature 97 F L Pulse Rate [Pulse Oximeter] Pulse Rate [Right Brachial] 90 90 Pulse Rate [Right Pulse Oximeter] Respiratory Rate 14 14 Blood Pressure [Ri ght Arm] 130/62 Blood Pressure [Ri ght Upper Arm] Pulse Oximetry 97 97 Oxygen Delivery Ia thod Room Air Room Air 04/20/23 19:00 04/20/23 23:00 04/20/23 23:47 Temperature 98.1 F 97.5 F L Pulse Rate [Pulse Oximeter] 63 Pulse Rate [Right Brachial] 78 Pulse Rate [Right Pulse Oximeter] Respiratory Rate 16 16 16 Blood Pressure [Ri ght Arm] 124/78 Blood Pressure [Ri ght Upper Arm] Pulse Oximetry 96 92 92 Oxygen Delivery Ia thod Room Air Room Air Room Air 04/21/23 03:00 Temperature 97.4 F L Pulse Rate [Pulse Oximeter] 60 Pulse Rate [Right Brachial] Pulse Rate [Right Pulse Oximeter] Respiratory Rate 18 Blood Pressure [Ri ght Arm] 148/74 H Blood Pressure [Ri ght Upper Arm] Pulse Oximetry 94 Oxygen Delivery Ia thod Room Air Labs Labs: Laboratory Results - last 24 hr 04/20/23 04/20/23 04/20/23 10:47 11:12 11:45 WBC 8.35 RBC 5.01 Hgb 14.6 Hct 44.1 MCV 88 MCH 29 MCHC 33 RDW Coeff of Jo-Ann 12.8 Plt Count 167 Neut % (Auto) 77.0 H Lymph % (Auto) 12.0 L White % (Auto) 9.9 Eos % (Auto) 0.6 Baso % (Auto) 0.4 Neut # (Auto) 6.40 Lymph # (Auto) 1.00 White # (Auto) 0.80 Eos # (Auto) 0.05 Baso # (Auto) 0.03 Abs Immat Gran (auto) 0.01 Imm/Tot Granulo (auto) 0.1 VBG pH VBG pCO2 VBG pO2 VBG HCO3 Sodium 137 Potassium 3.1 L Chloride 98 Carbon Dioxide 33 H Anion Gap 6 L BUN 44 H Creatinine 1.7 H Estimated Creat Clear Estimated GFR 30 Glucose 110 Lactate 1.2 Calcium 16.9 H* Ionized Calcium Mary 2.06 H Phosphorus Magnesium Total Bilirubin 1.2 Direct Bilirubin 0.1 AST 26 ALT 20 Alkaline Phosphatase 72 C-Reactive Protein 1.8 H Total Protein 7.6 Albumin 4.4 Lipase 98 TSH 2.580 Urine Color Light yellow Urine Appearance Slightly Cloudy A Urine pH 7.0 Ur Specific [place] 1.020 Urine Protein Negative Urine Glucose (UA) Negative Urine Ketones Negative Urine Blood Trace-lysed A Urine Nitrite Negative Urine Bilirubin Negative Urine Urobilinogen 0.2 Ur Leukocyte Esterase Trace A Urine RBC 2-5 A Urine WBC 5-10 A Ur Squamous Epith Cells Few Amorphous Sediment Moderate A Urine Bacteria None SARS-CoV-2 (PCR) Negative SARS-CoV-2 POC Troponin I 0.02 04/20/23 04/21/23 18:05 06:22 WBC 6.26 RBC 4.23 Hgb 12.5 Hct 37.9 MCV 90 MCH 30 MCHC 33 RDW Coeff of Jo-Ann 13.0 Plt Count 154 Neut % (Auto) 71.5 Lymph % (Auto) 15.8 L White % (Auto) 10.9 Eos % (Auto) 1.0 Baso % (Auto) 0.6 Neut # (Auto) 4.48 Lymph # (Auto) 1.00 White # (Auto) 0.70 Eos # (Auto) 0.06 Baso # (Auto) 0.04 Abs Immat Gran (auto) 0.01 Imm/Tot Granulo (auto) 0.2 VBG pH 7.393 VBG pCO2 57 H VBG pO2 27.1 VBG HCO3 34 H Sodium 141 141 Potassium 3.2 L 3.2 L Chloride 100 103 Carbon Dioxide 35 H 36 H Anion Gap 6 L 2 L BUN 42 H 41 H Creatinine 1.5 1.7 H Estimated Creat Clear 23.26 20.53 Estimated GFR 35 30 Glucose 103 94 Lactate 0.7 Calcium 15.6 H* 13.7 H* Ionized Calcium Mary 1.80 H Phosphorus 3.0 2.7 Magnesium 2.0 1.9 Total Bilirubin Direct Bilirubin AST ALT Alkaline Phosphatase C-Reactive Protein 2.0 H Total Protein Albumin 4.1 3.7 Lipase TSH Urine Color Urine Appearance Urine pH Ur Specific [place] Urine Protein Urine Glucose (UA) Urine Ketones Urine Blood Urine Nitrite Urine Bilirubin Urine Urobilinogen Ur Leukocyte Esterase Urine RBC Urine WBC Ur Squamous Epith Cells Amorphous Sediment Urine Bacteria SARS-CoV-2 (PCR) POC Troponin I
[2023-04-21] MEDS: POTASSIUM BICARB 25 MEQ EFFERVESCENT TAB 50 MEQ PO (09:15)
[2023-04-21] MEDS: ASPIRIN 81 MG TAB.CHEW PO (09:16)
[2023-04-21] MEDS: PARoxetine 20 MG TABLET PO (09:16)
[2023-04-21 11:00] VITALS: BP 164/89; PULSE 68; RESP 16; TEMP 36.1; O2SAT 93
[2023-04-21] MEDS: LIDOCAINE 5% PATCH 1 PATCH TRANSDERMA (11:37)
[2023-04-21] MEDS: ACETAMINOPHEN 325 MG TABLET 975 MG PO (11:37)
[2023-04-21] MEDS: POTASSIUM CHLORIDE 10 MEQ CAPSULE ER 40 MEQ PO (13:32)
[2023-04-21 15:00] VITALS: BP 157/89; PULSE 61; RESP 16; TEMP 35.9; O2SAT 94
--- NOTE | 2023-04-21 15:35 | PC.NURSE ---
End of shift note: Patient is pleasantly confused, but sweet and cooperative. Reorientation to surroundings is easy. Patient is able to verbalize wants and needs to RN. VSS w/ sats >93% on RA. Pt only complains of pain in her lower back, Lidocaine patch applied and pain from right hip down, PRN tylenol administered w/relief.. Patient uses walker/GB to BR and up to chair for meals, tolerated activity well. at bedside most of the morning.
--- NOTE | 2023-04-21 18:26 | PC.NURSE ---
Patient is alert and oriented to person. present at bedside. Patient is standby assist with walker and gait belt, tolerates activity fairly. Patient denies pain. Resting in bed comfortably.
[2023-04-21 19:36] VITALS: BP 164/91; PULSE 62; RESP 16; TEMP 36.6; O2SAT 93
[2023-04-21] MEDS: SODIUM CHLORIDE 0.9 % (FLUSH) 10 ML SYRINGE 5 ML IVF (21:12)
[2023-04-21] MEDS: LOVASTATIN 20 MG TABLET PO (21:12)
--- NOTE | 2023-04-21 22:38 | PC.NURSE ---
PT PLEASANT AND COOPERATIVE. FORGETFUL. UP TO THE BR WITH ASSIST OF ONE AND WALKER AND GAIT BELT ABOUT EVERY HR.
[2023-04-21 23:45] VITALS: BP 168/85; PULSE 62; RESP 16; TEMP 36.6; O2SAT 95
[2023-04-22 02:50] VITALS: BP 162/84; PULSE 63; RESP 16; TEMP 36.4; O2SAT 94
--- NOTE | 2023-04-22 05:34 | PC.NURSE ---
END OF SHIFT NOTE: PT PLEASANT AND COOPERATIVE. A&Ox3 WITH OCCASIONAL FORGETFULNESS. DENIES CP, SOB, N/V. AMBULATES WITH A1/WALKER, GB. VSS ON RA; AFEBRILE. BED ALARM ON AND CALL LIGHT WITHIN PT?S REACH. LSCTA. PT USES CALL LIGHT HOURLY TO USE BATHROOM.
[2023-04-22 06:39] LABS: Basophils Absolute Auto 0.03 K/uL (0.00-0.30); Basophils Percent Auto 0.5 % (0.0-3.0); Eosinophils Absolute Auto 0.08 K/uL (0.00-0.50); Eosinophils Percent Auto 1.3 % (0.0-7.0); Hematocrit 40.2 % (33.0-51.0); Hemoglobin* 13.1 gm/dL (12.0-16.0); Immature Granulocytes Abs Auto 0.02 K/uL (0.00-0.30); Immature Granulocytes Pct Auto 0.3 %; Lymphocytes Percent Auto 10.2 % (20-44); Mean Corpuscular HGB Conc 33 gm/dL (32-36); Mean Corpuscular Hemoglobin 29 pg (26-34); Mean Corpuscular Volume 89 fL (80-100); Monocytes Percent Auto 8.5 % (0.0-11.0); Neutrophils Percent Auto 79.2 % (42.0-72.0); Platelet Count* 156 K/uL (140-440); Red Blood Count 4.54 m/uL (4.00-5.20); White Blood Count* 6.37 K/uL (4.50-11.00)
[2023-04-22 06:42] LABS: Slide Review Reflex No
[2023-04-22 06:44] LABS: Ionized Calcium* 1.59 mmol/L (1.11-1.30)
[2023-04-22 07:00] VITALS: BP 147/90; PULSE 70; RESP 18; TEMP 36.2; O2SAT 97
[2023-04-22 07:11] LABS: Albumin* 4.1 g/dL (3.3-5.0); Chloride* 104 mmol/L (96-114); Potassium* 3.8 mmol/L (3.6-5.1); Sodium* 140 mmol/L (135-149)
[2023-04-22 07:13] LABS: Creatinine* 1.5 mg/dL (0.5-1.5); Est. Creatinine Clearance* 23.26; Estimated Glomerular Filt Rate 35 ml/min
[2023-04-22 07:14] LABS: Alanine Aminotransferase* 18 U/L (4-35); Alkaline Phosphatase* 60 U/L (40-150); Anion Gap 6 mEq/L (7-15); Aspartate Amino Transferase* 26 U/L (12-35); Bilirubin Total* 1.1 mg/dL (0.1-1.5); Blood Urea Nitrogen* 36 mg/dL (7-30); Carbon Dioxide* 30 mmol/L (20-32); Glucose* 92 mg/dL (60-115); Phosphorus* 2.2 mg/dL (2.5-4.5)
[2023-04-22 07:15] LABS: Magnesium* 1.7 mg/dL (1.5-2.6)
[2023-04-22 07:31] LABS: Calcium* 12.5 mg/dL (8.4-10.6)
[2023-04-22] MEDS: ASPIRIN 81 MG TAB.CHEW PO (08:53)
[2023-04-22] MEDS: PARoxetine 20 MG TABLET PO (08:54)
[2023-04-22] MEDS: LOVASTATIN 20 MG TABLET PO ×2 (08:54→21:05)
[2023-04-22] MEDS: ACETAMINOPHEN 325 MG TABLET 975 MG PO ×2 (08:55→21:04)
[2023-04-22] MEDS: SODIUM CHLORIDE 0.9 % (FLUSH) 10 ML SYRINGE 5 ML IVF (08:56)
[2023-04-22] MEDS: FUROSEMIDE 40 MG TABLET 20 MG PO (10:51)
[2023-04-22 11:00] VITALS: BP 159/91; PULSE 62; RESP 20; TEMP 36.2; O2SAT 93
--- NOTE | 2023-04-22 12:37 | P.IMPN_ITS ---
Progress Note: A&P Assessment and plan (1) Hypercalcemia: Problem details: - calcium 16.4 on 04/20/23; normal 12/30. Unlikely iatrogenic. Awaiting PTH, SPEP - received Zolendronic acid on 04/20, also on IVFs - calcium improved to 12.5 on 04/22 Status: Acute (2) Metabolic encephalopathy: Problem details: - most likely related to hypercalcemia, OT and PT following - no focal neurological findings, improving as calcium improves Status: Acute (3) Weakness: Problem details: - likely 2/2 hypercalcemia - therapies following Status: Acute (4) Abnormal thyroid exam: Problem details: - Asymmetry on palpation, TSH 2.58 on 04/20/23 - ultrasound reassuring 04/20/23 with formal radiology read below: IMPRESSION: 1. No extrathyroidal masses/visible parathyroid adenomas. 2. Thyroid nodules with TI-RADS classification of TR3and TR4. Given the size less than 1 cm, no specific imaging follow-up is recommended. Status: Acute (5) Hypokalemia: Problem details: - replace and follow Status: Acute Plan - per above - likely medically appropriate for d/c tomorrow (home with vs TCU) - updated at bedside, questions answered Subjective Date Seen: 04/22/23 Interval history: Saurabh was admitted to the hospital on 04/20 for weakness and AMS, found to have severe hypercalcemia. She has been treated with Zolendronic acid and IVFs, calcium continues to improve. Her confusion is improving and she is working with therapies for her weakness. She is tolerating po intake. Last night she was up every hour to urinate. No dysuria. No growth on urine culture. No other concerns for hospitalist team this morning. VS remain stable, we continue to await results for PTH, SPEP. Exam Narrative: Exam Narrative: GEN: Alert HEENT: EOMIs bilaterally, no scleral icterus CV: RRR, No concerning murmurs, rubs, or gallops R: LCTA bilaterally without concerning wheezing, air movement adequate Ext: wwp, no concerning edema Skin: No concerning skin lesions or rashes on exposed skin Neuro: No focal deficits, no resting tremor Psych: Appropriate, confusion has improved Const: Vital Signs, click to edit/add: Vital Signs - 24 hr 04/21/23 15:00 04/21/23 15:00 04/21/23 19:36 Temperature 96.7 F L 97.8 F Pulse Rate [Pulse Oximeter] 61 62 Respiratory Rate 16 16 Blood Pressure [Ri ght Arm] 157/89 H 164/91 H Pulse Oximetry 94 94 93 Oxygen Delivery Me thod Room Air Room Air Room Air 04/21/23 23:45 04/21/23 23:45 04/21/23 23:45 Temperature 97.9 F Pulse Rate [Pulse Oximeter] 62 62 Respiratory Rate 16 16 16 Blood Pressure [Ri ght Arm] 168/85 H Pulse Oximetry 95 95 Oxygen Delivery Me thod Room Air Room Air 04/22/23 02:50 04/22/23 07:00 04/22/23 07:00 Temperature 97.5 F L 97.2 F L Pulse Rate [Pulse Oximeter] 63 70 Respiratory Rate 16 18 Blood Pressure [Ri ght Arm] 162/84 H 147/90 H Pulse Oximetry 94 97 97 Oxygen Delivery Me thod Room Air Room Air Room Air 04/22/23 11:00 Temperature 97.1 F L Pulse Rate [Pulse Oximeter] 62 Respiratory Rate 20 Blood Pressure [Ri ght Arm] 159/91 H Pulse Oximetry 93 Oxygen Delivery Me thod Room Air Labs Labs: Laboratory Results - last 24 hr 04/22/23 05:40 WBC 6.37 RBC 4.54 Hgb 13.1 Hct 40.2 MCV 89 MCH 29 MCHC 33 RDW Coeff of Jo-Ann 13.0 Plt Count 156 Neut % (Auto) 79.2 H Lymph % (Auto) 10.2 L [place] % (Auto) 8.5 Eos % (Auto) 1.3 Baso % (Auto) 0.5 Neut # (Auto) 5.00 Lymph # (Auto) 0.60 L [place] # (Auto) 0.50 Eos # (Auto) 0.08 Baso # (Auto) 0.03 Abs Immat Gran (auto) 0.02 Imm/Tot Granulo (auto) 0.3 Sodium 140 Potassium 3.8 Chloride 104 Carbon Dioxide 30 Anion Gap 6 L BUN 36 H Creatinine 1.5 Estimated Creat Clear 23.26 Estimated GFR 35 Glucose 92 Calcium 12.5 H* Ionized Calcium Mary 1.59 H Phosphorus 2.2 L Magnesium 1.7 Total Bilirubin 1.1 AST 26 ALT 18 Alkaline Phosphatase 60 Total Protein 7.0 Albumin 4.1
[2023-04-22 15:00] VITALS: BP 160/95; PULSE 64; RESP 18; TEMP 36.2; O2SAT 95
--- NOTE | 2023-04-22 16:36 | PC.SOCIAL ---
Discharge planning- met with pt and pt's . Pt's would like pt to return home as he states he will be able to provide cares to her. Pt's will be in the room with pt when she receives PT and OT today and will discuss further. Received a phone call from therapy informing that pt can return to home with home care for PT and OT. Completed Face to Face for home care orders form and provided to MD. Phone call and voicemail to Dang at [facility] to check on availability. Discussed with John at [facility] and she will call this worker back when it is determined if they can accept the referral. Informed that pt will likely discharge tomorrow. Social work will follow up as needed.
[2023-04-22] MEDS: POTASSIUM PHOS/SODIUM PHOS 250 MG TABLET PO (18:12)
[2023-04-22] MEDS: LIDOCAINE 5% PATCH 1 PATCH TRANSDERMA (18:13)
--- NOTE | 2023-04-22 18:39 | PC.NURSE ---
Patient pleasant and cooperative. A&Ox3 person, place, time. present at bedside during shift. Patient is standby assist with gait belt and walker, independent in bathroom. Patient verbally denies pain, PRN interventions used per MAR for comfort. Patient tolerates diet fairly well and displays fair appetite.
[2023-04-22 20:00] VITALS: BP 163/94; PULSE 65; RESP 16; TEMP 21.1; O2SAT 94
[2023-04-22] MEDS: ENOXAPARIN 30 MG/0.3ML INJ SUBCUT (21:05)
[2023-04-22 23:00] VITALS: O2SAT 95
[2023-04-23 03:00] VITALS: BP 156/112; PULSE 63; RESP 18; TEMP 36.2; O2SAT 95
--- NOTE | 2023-04-23 06:19 | PC.NURSE ---
End of shift: Pt slept most of the shift. Not up to the BR as frequently. VS on RA. Intermittent confusion... although responds correctly to orientation questions. SBA w/ RW. No pain this shift. Call light within reach. Plan is to dx home with home health services.
[2023-04-23 06:43] LABS: Ionized Calcium* 1.47 mmol/L (1.11-1.30)
[2023-04-23 06:46] LABS: Basophils Absolute Auto 0.03 K/uL (0.00-0.30); Basophils Percent Auto 0.5 % (0.0-3.0); Eosinophils Absolute Auto 0.12 K/uL (0.00-0.50); Hematocrit 38.8 % (33.0-51.0); Hemoglobin* 12.7 gm/dL (12.0-16.0); Immature Granulocytes Abs Auto 0.01 K/uL (0.00-0.30); Immature Granulocytes Pct Auto 0.2 %; Lymphocytes Percent Auto 18.6 % (20-44); Mean Corpuscular HGB Conc 33 gm/dL (32-36); Mean Corpuscular Hemoglobin 29 pg (26-34); Mean Corpuscular Volume 88 fL (80-100); Monocytes Percent Auto 10.9 % (0.0-11.0); Neutrophils Absolute Auto 4.15 K/uL (1.7-7.0); Neutrophils Percent Auto 67.8 % (42.0-72.0); Platelet Count* 151 K/uL (140-440); Red Blood Count 4.41 m/uL (4.00-5.20); White Blood Count* 6.12 K/uL (4.50-11.00)
[2023-04-23 07:00] VITALS: BP 155/86; PULSE 69; RESP 18; TEMP 36.6; O2SAT 95
[2023-04-23 07:11] LABS: Slide Review Reflex No
[2023-04-23] MEDS: POTASSIUM PHOS/SODIUM PHOS 250 MG TABLET PO (08:05)
[2023-04-23 08:09] LABS: Albumin* 3.9 g/dL (3.3-5.0); Chloride* 106 mmol/L (96-114); Sodium* 140 mmol/L (135-149)
[2023-04-23 08:10] LABS: Potassium* 3.2 mmol/L (3.6-5.1)
[2023-04-23 08:12] LABS: Alanine Aminotransferase* 16 U/L (4-35); Alkaline Phosphatase* 63 U/L (40-150); Anion Gap 7 mEq/L (7-15); Aspartate Amino Transferase* 23 U/L (12-35); Bilirubin Total* 0.9 mg/dL (0.1-1.5); Blood Urea Nitrogen* 36 mg/dL (7-30); Carbon Dioxide* 27 mmol/L (20-32); Creatinine* 1.6 mg/dL (0.5-1.5); Est. Creatinine Clearance* 21.81; Estimated Glomerular Filt Rate 32 ml/min; Glucose* 95 mg/dL (60-115); Total Protein* 6.9 g/dL (6.0-8.3)
[2023-04-23 08:13] LABS: Calcium* 11.6 mg/dL (8.4-10.6); Phosphorus* 2.9 mg/dL (2.5-4.5)
--- NOTE | 2023-04-23 09:36 | P.DS_ITS ---
DS: Providers Provider Date Seen: 04/23/23 Date of admission: 04/20/23 15:39 Primary care physician: Heri Fuentes MD Admitting Clinician: Karina Reed MD Attending Physician on discharge: Karina Reed MD Date of Discharge: 04/23/23 DS: Diagnosis Discharge Diagnosis (1) Hypercalcemia: Status: Acute Problem details: - calcium 16.4 on 04/20/23; normal 12/30. Unlikely iatrogenic. Awaiting PTH, SPEP upon discharge - received Zolendronic acid on 04/20; calcium improved during stay, trended down to 11.6 on day of discharge (2) Metabolic encephalopathy: Status: Acute Problem details: - most likely related to hypercalcemia, OT and PT following - no focal neurological findings, improving as calcium improves - therapies recommend home health upon d/c (3) Weakness: Status: Acute Problem details: - likely 2/2 hypercalcemia - therapies following, home with (4) Abnormal thyroid exam: Status: Acute Problem details: - Asymmetry on palpation, TSH 2.58 on 04/20/23 - ultrasound reassuring 04/20/23 with formal radiology read below: IMPRESSION: 1. No extrathyroidal masses/visible parathyroid adenomas. 2. Thyroid nodules with TI-RADS classification of TR3and TR4. Given the size less than 1 cm, no specific imaging follow-up is recommended. (5) Hypokalemia: Status: Acute Problem details: - replace and follow - K of 3.2 on day of discharge (given 50mEq of oral potassium prior to leaving) DS: Summary Hospital Course Hospital Course: Saurabh is a delightful 82-year-old female who presented to the hospital on 04/20 for acute on chronic weakness and confusion. In the ED, she was found to have a calcium >16. She was admitted, given IV fluids, given Zoledronic Acid, and calcium trended d ownward. Her weakness and confusion (presumed metabolic encephalopathy, noted to have low colony growth on UTI without dysuria, so not treated) improved throughout stay. She was seen by therapies, who recommend home health upon discharge. Patient medically appropriate for discharge home with and home health on 04/23/23. She will see her PCP next week: Pending at time of discharge are a PTH and SPEP to help ascertain the underlying cause of hypercalcemia. Status at Discharge Functional status at discharge: uses cane/walker Time Spent with Patient Time attestation: Total time spent providing and/or coordinating discharge services: Time spent: Greater than 30 minutes Specific discharge activities: medication mgmt, care coordination and f/u planning, documentation Exam Narrative: Exam Narrative: GEN: Alert and pleasant, sitting up in bed HEENT: EOMIs bilaterally, no scleral icterus CV: RRR, No concerning murmurs R: LCTA bilaterally without concerning wheezing, air movement adequate Ext: wearing Garry hose Skin: No concerning skin lesions or rashes on exposed skin Neuro: No focal deficits, no resting tremor Psych: Mild psychomotor slowing, improved Const: Vital Signs, click to edit/add: Vital Signs - 24 hr 04/22/23 11:00 04/22/23 15:00 04/22/23 15:00 Temperature 97.1 F L 97.1 F L Pulse Rate [Pulse Oximeter] 62 64 Respiratory Rate 20 18 Blood Pressure [Ri ght Arm] 159/91 H 160/95 H Pulse Oximetry 93 95 95 Oxygen Delivery Me thod Room Air Room Air Room Air 04/22/23 20:00 04/22/23 23:00 04/23/23 03:00 Temperature 69.9 F L 97.1 F L Pulse Rate [Pulse Oximeter] 65 63 Respiratory Rate 16 18 Blood Pressure [Ri ght Arm] 163/94 H 156/112 H Pulse Oximetry 94 95 95 Oxygen Delivery Me thod Room Air Room Air Room Air 04/23/23 07:00 04/23/23 07:00 Temperature Pulse Rate [Pulse Oximeter] 69 Respiratory Rate 18 18 Blood Pressure [Ri ght Arm] Pulse Oximetry 95 Oxygen Delivery Me thod Room Air DS: Data Data Completed and Pending Labs on day of discharge: Labs from last 24 hours 04/23/23 05:47 WBC 6.12 RBC 4.41 Hgb 12.7 Hct 38.8 MCV 88 MCH 29 MCHC 33 RDW Coeff of Jo-Ann 13.0 Plt Count 151 Neut % (Auto) 67.8 Lymph % (Auto) 18.6 L [place] % (Auto) 10.9 Eos % (Auto) 2.0 Baso % (Auto) 0.5 Neut # (Auto) 4.15 Lymph # (Auto) 1.10 [place] # (Auto) 0.70 Eos # (Auto) 0.12 Baso # (Auto) 0.03 Abs Immat Gran (auto) 0.01 Imm/Tot Granulo (auto) 0.2 Sodium 140 Potassium 3.2 L Chloride 106 Carbon Dioxide 27 Anion Gap 7 BUN 36 H Creatinine 1.6 H Estimated Creat Clear 21.81 Estimated GFR 32 Glucose 95 Calcium 11.6 H Ionized Calcium Mary 1.47 H Phosphorus 2.9 Total Bilirubin 0.9 AST 23 ALT 16 Alkaline Phosphatase 63 Total Protein 6.9 Albumin 3.9 Discharge Plan Discharge Disposition: Home, Self-Care Date of Admission: 04/20/23 15:39 Attending Provider on Discharge: Karina Reed Primary Care Provider: Heri Fuentes Condition: Stable Anticipated Discharge Date/Time: 04/23/23 11:00 Discharge Medications: New zolpidem 5 mg Tablet 5 mg PO HS PRNQty: 30 0RF Rx Instructions: please note dose decrease Continued denosumab 60 mg/mL syringe 60 mg subcut DIRECTED Rx Instructions: every 6 months aspirin 81 mg tablet,chewable 1 tab PO DAILY multivitamin Tablet 1 tab PO QAM paroxetine HCl [Paxil] 20 mg tablet 20 mg PO DAILY lovastatin 20 mg tablet 20 mg PO DAILY gabapentin 300 mg capsule 300 - 600 mg PO QID Qty: 450 1RF Rx Instructions: 1 TID and 2 QHS, fill when needed Discontinued cholecalciferol (vitamin D3) 25 mcg (1,000 unit) capsule 1,000 unit PO BID glucosamine-chondroitin 900 mg tablet 900 mg PO QDAY calcium carbonate [Calcium 500] 500 mg calcium (1,250 mg) tablet,chewable 500 mg PO BID zolpidem 10 mg tablet 10 mg PO HS PRN (Reason: sleep) finasteride 5 mg tablet 2.5 mg PO DAILY Patient Comments: TAKE 1 TABLET BY MOUTH EVERY DAY Discharge Orders: Discharge Order (Routine); Ordered 04/23/23 Ordered By: Karina Reed Patient Education: Zolpidem (By mouth), Hypercalcemia (DC), Fall Prevention (DC) Additional Instructions: See Dr. Fuentes as scheduled to go over some of the pending results from this hospital stay. You will be stopping some of your medications (see list) and I would like you to take a lower dose of Ambien at night (5mg instead of 10mg), try to limit this. Activity Level: Activity as Tolerated and No strenuous activity Discharge Diet: Regular Follow Up Appointments: Heri Fuentes MD [Primary Care Provider] - 04/28/23 8:30 am ([facility] for follow up (go over pending results).) Forms: [employer] Info Instructions
[2023-04-23] MEDS: ASPIRIN 81 MG TAB.CHEW PO (09:43)
[2023-04-23] MEDS: PARoxetine 20 MG TABLET PO (09:43)
[2023-04-23] MEDS: POTASSIUM BICARB 25 MEQ EFFERVESCENT TAB 50 MEQ PO (09:45)
[2023-04-23 11:00] VITALS: BP 154/93; PULSE 76; RESP 20; TEMP 36.7; O2SAT 95
--- NOTE | 2023-04-23 11:39 | PC.SOCIAL ---
Addendum entered by BRITTA Cole 04/23/23 15:36: Received phone call from Julienne at [facility]. Julienne confirms that [facility] can accept pt and will open for services on ThursdayApril 27. [facility] will follow up with pt to schedule. Phone call to pt's and provided information on home care agency. Original Note: Discharge planning- Phone call to [facility] ([facility]) at [phone] and spoke to Julienne in Intake. [facility] has openings and is willing to review referral. Faxed referral to [phone]. Julienne will confirm with this worker if they can accept pt. Social work will follow up as needed.
--- NOTE | 2023-04-23 12:18 | PC.NURSE ---
Nursing Care Hours: [id number] Pt this shift alert but drowsy and oriented but delayed. SB assist with walker and gait belt to bathroom. Skin intact. LS clear. HTN noted, asymptomatic. tolerated regular diet, BM x1. No c/o pain for me this shift. Discharge instructions went over with pt and spouse. Discussed mentioning at follow up the elevated blood pressures. All questions and concerns addressed. Pt wheeled out to adult sons vehicle with spouse, in stable condition.
[2023-04-23 13:28] LABS: C-Peptide, Serum or Plasma 3.7 ng/mL (0.5-3.3)
[2023-04-25 11:30] LABS: Albumin 3.86 g/dL (3.75-5.01); Alpha 1 Globulin 0.31 g/dL (0.19-0.46); Alpha 2 Globulin 0.74 g/dL (0.48-1.05); Total Protein, Serum 6.4 g/dL (6.3-8.2)
== END 2023-04-23 12:03 | disposition home or self-care (01) | DRG 640 ==
LOC: ED 10:23 → MEDSURG 13:57
PROVIDERS: Family Medicine; Admitting Provider Internal Medicine; Emergency Provider Emergency Medicine; PCP Family Medicine; Visit Provider Internal Medicine
DX: E83.52 Hypercalcemia (principal); G93.41 Metabolic encephalopathy; R53.1 Weakness; M17.0 Bilateral primary osteoarthritis of knee; I10 Essential (primary) hypertension; K21.9 Gastro-esophageal reflux disease without esophagitis; Z87.442 Personal history of urinary calculi; E78.5 Hyperlipidemia, unspecified; Z96.649 Presence of unspecified artificial hip joint; Z98.890 Other specified postprocedural states; M81.0 Age-related osteoporosis without current pathological fracture; G89.29 Other chronic pain; G47.00 Insomnia, unspecified; G62.9 Polyneuropathy, unspecified; E04.1 Nontoxic single thyroid nodule
CPT/HCPCS: 36415; 51798; 74176; 76536; 80048; 80053; 80069; 80076; 81001; 82310; 82330; 82803; 83605; 83690; 83735; 83970; 84100; 84165; 84443; 84484; 84681; 85025; 86140; 87086; 87186; 87635; 92610; 93005; 97112; 97116; 97162; 97165; 97530; 97535; 99284; 99285; A9270; J1650; J1940; J2270; J3489; J7030; J7120

== ENCOUNTER 2023-04-28 09:18 | Outpatient (CLI) | payer MEDICARE, SELFPAY | END 2023-04-28 09:19 | disposition home or self-care (01) | PROVIDERS: PCP Family Medicine; Visit Provider Family Medicine | DX: R53.1 Weakness (principal); E83.52 Hypercalcemia; E87.6 Hypokalemia; R94.6 Abnormal results of thyroid function studies | CPT/HCPCS: 80048; 85025 ==

== ENCOUNTER 2023-06-17 10:59 | Outpatient (CLI) | payer MEDICARE, SELFPAY | END 2023-06-17 11:00 | disposition home or self-care (01) | LOC: NFLDREF 06-18 06:12 | PROVIDERS: PCP Family Medicine; Referring Provider Family Medicine; Visit Provider Family Medicine | DX: E83.52 Hypercalcemia (principal) | CPT/HCPCS: 80048; 82310; 83970 ==

== ENCOUNTER 2023-07-17 08:52 | Outpatient (RCR) | payer MEDICARE, SELFPAY ==
[2023-07-17 09:48] LABS: Creatinine* 0.8 mg/dL (0.5-1.5); Estimated Glomerular Filt Rate 74 ml/min
[2023-07-17 09:49] LABS: Calcium* 9.5 mg/dL (8.4-10.6)
[2023-07-17 10:17] LABS: Cholesterol* 181 mg/dL (90-199)
[2023-07-17] MEDS: DENOSUMAB 60 MG/ML SYRINGE SUBCUT (10:17)
[2023-07-17 10:18] LABS: HDL Cholesterol* 51 mg/dL (>=50); LDL Cholesterol Calculated 96 mg/dL (<100); Triglycerides* 170 mg/dL (40-149)
[2023-07-17 10:37] VITALS: BP 124/74; PULSE 76; RESP 16; TEMP 36.3; O2SAT 93
--- NOTE | 2024-01-11 10:43 | URNOTE ---
Prior auth is not required for Prolia (J0897). Pt has medicare/AARP supplement. Services are based on medial necessity and follow medicare guidelines.
== END 2024-01-13 23:59 | disposition home or self-care (01) ==
LOC: CCIC 08:52
PROVIDERS: PCP Family Medicine; Referring Provider Family Medicine; Visit Provider Family Medicine
DX: M81.0 Age-related osteoporosis without current pathological fracture (principal)
CPT/HCPCS: 36415; 80061; 82310; 82565; 96372; J0897

== ENCOUNTER 2023-08-26 11:12 | Outpatient (CLI) | payer MEDICARE, SELFPAY ==
--- OUTSIDE RECORDS SUMMARY | 2023-08-26 11:14 | XMS_ITS | Clinical Summary ---
Author Name Unknown Organization [facility] Address [address] [place] [address] Care Team Providers Care Supervisor [employer] Name Role Phone Clinic, [facility] Primary Care Provider Immunizations Name Administration Dates Next Due COVID-19 MONOVALENT 12+ (Pfizer) 05/09/2021,09/2020,09/18/2020 Social History Tobacco Use Types Packs/Day Years Used Date Smoking Tobacco: Never Assessed Adolescent Education Answer Date Record ed Getting School Help Needed Not on file 05/02 Sex and Gender Information Value Date Recorded Sex Assigned at Not on file Gender Identity Not on file Sexual Orientation Not on file Plan of Treatment Health Maintenance Due Date Last Done Comments ADVANCE CARE PLANNING 1940 ANNUAL REVIEW OF HM ORDERS 1940 DEXA 1940 DTAP/TDAP/TD IMMUNIZATION (1 - Tdap) 1966 ZOSTER IMMUNIZATION (1 of 2) 10/18/1991 RSV VACCINE ( & 60+ ) (1 - 1-dose 60+ series) 2001 FALL RISK ASSESSMENT 2006 MEDICARE ANNUAL WELLNESS VISIT 2006 Pneumococcal Vaccine: 65+ Years (2 of 2 - PCV) 12/07/2008 12/08/2007 COVID-19 Vaccine (4 - 2022-2 4 season) 2023 05/09/2021, 10/09/2020, 09/18/2020 INFLUENZA VACCINE (#1) 2023 05/18/2020 PHQ-2 (once per calendar year) 2023 HPV IMMUNIZATION Aged Out No longer e ligible based on patient's age to complete this topic IPV IMMUNIZATION Aged Out No longer e ligible based on patient's age to complete this topic MENINGITIS IMMUNIZATION Aged Out No l onger eligible based on patient's age to complete this topic RSV MONOCLONAL ANTIBODY Aged Out No l onger eligible based on patient's age to complete this topic Care Teams Supervisor [employer] Relationship Specialty Start Date End Date Clinic, [facility] [address] [place] [address] PCP - General 09/17/20
--- OUTSIDE RECORDS SUMMARY | 2023-08-26 11:14 | XMS_ITS | Referral Summary ---
Author Name Unknown Organization [facility] Address [address] [place] [id number] Care Team Providers Care Engagement Lead Name Role Phone [facility] Primary Care Provider Immunizations Name Administration Dates [...] Orientation Not on file Plan of Treatment Not on file Care Teams Engagement Lead Relationship Specialty [facility] Date [facility] [address] [place] [address] PCP - General 09/17/20
--- OUTSIDE RECORDS SUMMARY | 2023-08-26 11:14 | XMS_ITS | Clinical Summary ---
Author Name Unknown Organization [facility] Address [address] [place] [address] Care Team Providers Care Ip/Mosaic Technician Name Role Phone No Primary/Referring, Phy Primary Care Provider Unavailable Source Comments You are receiving this document as you are listed as the primary care provider,follow-up provider, or the patient has been referred to you for consultation.This is in compliance with the Medicare and[facility] EHR Incentive Program,which states Providers who transition their patient to another setting of careor provider of care or refers their patient to another provider of care shouldprovide summary care record for each transition of care or referral. [facility] Allergies No known active allergies Medications Medication Sig Dispensed Refills Start Date End Date Status zolpidem (AMBIEN) 5 MG tablet Take 5 mg by mouth at bedtime as needed for Sleep. 0 Active gabapentin (NEURONTIN) 600 MG tablet Take 600 mg by mouth 4 times a day. 0 Active potassium citrate (UROCIT-K) 10 MEQ (1080 MG) controlled release tablet Take by mouth daily. 0 Active HYDROCHLOROTHIAZIDE OR 0 Active LOVASTATIN OR 0 Active BABY ASPIRIN OR 0 Active Denosumab (PROLIA SC) Take injection every 6 months: last dose was October 2019 0 Active AMOXICILLIN OR Take prior to dental appts due to hip replacement 0 Active SERTRALINE HCL OR daily. 0 Active calcitonin, salmon, (MIACALCIN) 200 UNIT/ACT nasal solution 1 [place] by Alternating nostrils route daily for 30 days. 3.7 mL 0 12/30/2019 Active oxyCODONE (ROXICODONE) 5 MG immediate release tablet Take 0.5-1 Tablets by mouth every 6 hours as needed for Pain. 10 Tablet 0 12/30/2019 Active Social History Tobacco Use Types Packs/Day Years Used Date Smoking Tobacco: Never Assessed Sex and Gender Information Value Date Recorded Sex Assigned at Not on file Gender Identity Not on file Sexual Orientation Not on file Last Filed Vital Signs Vital Sign Reading Time Taken Comments Blood Pressure 122/69 12/30/2019 4:00 PM CDT Pulse 73 12/30/2019 7:00 PM CDT Temperature 36.4 ??C (97.5 ??F) 12/30/2019 7:45 AM CD T Respiratory Rate 12 12/30/2019 3:30 PM CDT Oxygen Saturation 92% 12/30/2019 7:00 PM CDT Inhaled Oxygen Concentration - - Weight - - Height - - Body Mass Index - - Plan of Treatment Health Maintenance Due Date Last Done Comments Medicare Annual Wellness Visit 1940 COVID-19 Vaccine (#1) 04/19/1942 DTaP/Tdap/Td (1 - Tdap) 1960 Zoster/Shingles (1 of 2) 10/18/1991 Dexa 2006 Pneumococcal 65+ Yrs (2 - PCV) 12/07/2008 12/08/2007 Influenza (#1) 2023 05/18/2020 HepA Aged Out No longer eligi ble based on patient's age to complete this topic HepB Aged Out No longer eligi ble based on patient's age to complete this topic Hib Aged Out No longer eligi ble based on patient's age to complete this topic IPV (Polio) Aged Out No longer eligi ble based on patient's age to complete this topic MCV4 Aged Out No longer eligi ble based on patient's age to complete this topic Care Teams Ip/Mosaic Technician Relationship Specialty Start Date End Date No Primary/Referring, Phy PCP - General 12/30/19
== END 2023-08-26 11:13 | disposition home or self-care (01) ==
PROVIDERS: PCP Family Medicine; Visit Provider Family Medicine
DX: Z00.00 Encounter for general adult medical examination without abnormal findings (principal); E78.2 Mixed hyperlipidemia; I10 Essential (primary) hypertension; G62.9 Polyneuropathy, unspecified
CPT/HCPCS: 80048; 84100

== ENCOUNTER 2023-12-14 10:07 | Outpatient (CLI) | payer MEDICARE, SELFPAY ==
--- OUTSIDE RECORDS SUMMARY | 2023-12-14 10:11 | XMS_ITS | Referral Summary ---
Author Name Unknown Organization [facility] Address [address] [place] [address] Care Team Providers Care Paper Machine Back Tender Name Role Phone [facility] Primary Care Provider Immunizations Name Administration Dates [...] of Treatment Not on file Care Teams Paper Machine Back Tender Relationship Specialty Start Date [facility] [address] [place] [address] PCP - General 09/17/20
--- OUTSIDE RECORDS SUMMARY | 2023-12-14 10:11 | XMS_ITS | Clinical Summary ---
Author Name Unknown Organization [facility] Address [address] [place] [address] Care Team Providers Care News Videotape Editor Name Role Phone No Primary/Referring, Phy Primary Care Provider Unavailable Source Comments You are receiving this document as you are listed as the primary care provider,follow-up provider, or the patient has been referred to you for consultation.This is in compliance with the Medicare andMedicaid EHR Incentive Program,which states Providers who transition [...] mouth at bedtime as needed for Sleep. Active gabapentin (NEURONTIN) 600 MG tablet Take 600 mg by mouth 4 times a day. Active potassium citrate (UROCIT-K) 10 MEQ (1080 MG) controlled release tablet Take by mouth daily. Active HYDROCHLOROTHIAZIDE OR Active LOVASTATIN OR Active BABY ASPIRIN OR Active Denosumab (PROLIA SC) Take injection every 6 months: last dose was October 2019 Active AMOXICILLIN OR Take prior to dental appts due to hip replacement Active SERTRALINE HCL OR daily. Active calcitonin, salmon, (MIACALCIN) 200 UNIT/ACT nasal solution 1 [place] by Alternating nostrils route daily for 30 days. 3.7 mL 12/30/2019 Active oxyCODONE (ROXICODONE) 5 MG immediate release tablet Take 0.5-1 Tablets by mouth every 6 hours as needed for Pain. 10 Tablet 12/30/2019 Active Social History Tobacco Use Types [...] Done Comments Medicare Annual Wellness Visit 1940 DTaP/Tdap/Td (1 - Tdap) 1960 Zoster/Shingles (1 of 2) 10/18/1991 Dexa 2006 Pneumococcal 65+ Yrs (2 - PCV) 12/07/2008 12/08/2007 COVID-19 Vaccine (3 - 2022-2 4 season) 2023 10/09/2020, 09/18/2020 Influenza (Season Ended) 2024 05/18/2020 HepA Aged Out No longer eligi [...] age to complete this topic Care Teams News Videotape Editor Relationship Specialty Start Date End Date No Primary/Referring, Dejony PCP - General 12/30/19
--- OUTSIDE RECORDS SUMMARY | 2023-12-14 10:11 | XMS_ITS | Clinical Summary ---
Author Name Unknown Organization [facility] Address [address] [place] [address] Care Team Providers Care Exhaust Machine Operator Name Role Phone Clinic, [facility] Primary Care Provider Immunizations Name Administration Dates [...] 60+ series) 2001 FALL RISK ASSESSMENT 2006 Pneumococcal Vaccine: 65+ Years (2 of 2 - PCV) 12/07/2008 12/08/2007 COVID-19 Vaccine (4 - 2022-2 4 season) 2023 05/09/2021, 10/09/2020, 09/18/2020 PHQ-2 (once per calendar year) 2023 INFLUENZA VACCINE (Season Ended) 2024 05/18/2020 HPV IMMUNIZATION Aged Out No longer e [...] age to complete this topic Care Teams Exhaust Machine Operator Relationship Specialty Start Date End Date Clinic, [facility] [address] [place] [address] PCP - General 09/17/20
--- NOTE | 2023-12-14 10:15 | MM_ITS ---
Patient: ROSALIA GAN Facility:?[facility] Patient ID:?[id number] Site Patient ID:?[id number]. Site :?1940 Study:?XRay-Breast Bilateral 3D W/CAD-12/14/2023 10:32:12 AM Ordering Physician:Poli Final Report: BILATERAL SCREENING MAMMOGRAM WITH COMPUTER-AIDED DETECTION AND TOMOSYNTHESIS TECHNIQUE: CC and MLO views were obtained. These mammographic images have been obtained using full-field digital technique. These mammographic images were interpreted with the benefit of computer-aided detection. Breast Tomosynthesis was used in this interpretation. COMPARISON FILM: 12/11/22, 12/05/21, 12/04/20. FINDINGS: The breasts are heterogeneously dense, which may obscure small masses IMPRESSION: There is no radiographic evidence for malignancy. ASSESSMENT: BI-RADS Category 2: Benign RECOMMENDATION: Routine screening mammogram in 1 year. A lay language report of this examination will be provided to the patient. Heri Rollins M.D. Diagnostic Radiologist [email or web address] Transcribed: 12:54 p.william ochoa/Dictated by: Heir Rollins MD @ 12/15/2023 11:02:00 AM Signed by:Tito Rollins MD @12/15/2023 1:51:07 PM (Electronic Signature)
== END 2023-12-14 10:08 | disposition home or self-care (01) ==
PROVIDERS: PCP Family Medicine; Visit Provider Family Medicine
DX: Z12.31 Encounter for screening mammogram for malignant neoplasm of breast (principal); R92.2 Inconclusive mammogram
CPT/HCPCS: 77063; 77067

== ENCOUNTER 2024-01-15 08:49 | Outpatient (RCR) | payer MEDICARE, SELFPAY ==
[2024-01-15 09:21] LABS: Calcium* 9.5 mg/dL (8.4-10.6); Creatinine* 0.8 mg/dL (0.5-1.5); Est. Creatinine Clearance* 46.49; Estimated Glomerular Filt Rate 74 ml/min
[2024-01-15 09:33] VITALS: BP 115/74; PULSE 75; RESP 16; TEMP 36.2; O2SAT 93
[2024-01-15] MEDS: DENOSUMAB 60 MG/ML SYRINGE SUBCUT (09:35)
--- NOTE | 2024-07-05 11:40 | ONC.NURNOTE ---
Received a call that patient would like to schedule her next Prolia injection. Last injection was on 01/15/24. On review of her chart her Prolia order expires on 07/13/24. Advised patient that she needs to contact Dr. Fuentes to fax us new orders and then we can start the process of getting her next injection scheduled. Patient states she will send him a message.
--- NOTE | 2024-07-06 10:26 | URNOTE ---
Prior authorization is not required for Prolia (J0897). Pt has medicare/active A[employer] supplement. Services are based on medial necessity and follow medicare guidelines.
== END 2024-07-13 23:59 | disposition home or self-care (01) ==
LOC: CCIC 08:49
PROVIDERS: PCP Family Medicine; Referring Provider Family Medicine; Visit Provider Family Medicine
DX: M81.0 Age-related osteoporosis without current pathological fracture (principal); E78.5 Hyperlipidemia, unspecified
CPT/HCPCS: 36415; 82310; 82565; 96372; J0897

== ENCOUNTER 2024-04-26 10:45 | Outpatient (RCR) | payer MEDICARE, SELFPAY | END 2024-04-26 16:27 | disposition home or self-care (01) | PROVIDERS: PCP Family Medicine; Visit Provider Family Medicine | DX: M47.812 Spondylosis without myelopathy or radiculopathy, cervical region (principal); Z51.89 Encounter for other specified aftercare | CPT/HCPCS: 97110; 97140; 97162 ==

== ENCOUNTER 2024-07-19 09:24 | Outpatient (RCR) | payer MEDICARE, SELFPAY ==
[2024-07-19 10:05] LABS: Calcium* 9.6 mg/dL (8.4-10.6); Creatinine* 0.8 mg/dL (0.5-1.5); Estimated Glomerular Filt Rate 74 ml/min
[2024-07-19 10:24] VITALS: BP 125/78; PULSE 76; RESP 16; O2SAT 93
[2024-07-19] MEDS: DENOSUMAB 60 MG/ML SYRINGE SUBCUT (10:39)
== END 2025-01-15 23:59 | disposition home or self-care (01) ==
LOC: CCIC 09:24
PROVIDERS: PCP Family Medicine; Referring Provider Family Medicine; Visit Provider Clinical Nurse Specialist
DX: M81.0 Age-related osteoporosis without current pathological fracture (principal)
CPT/HCPCS: 36415; 82310; 82565; 96372; J0897

== ENCOUNTER 2024-08-31 11:09 | Outpatient (CLI) | payer MEDICARE, SELFPAY | END 2024-08-31 11:10 | disposition home or self-care (01) | PROVIDERS: PCP Family Medicine; Visit Provider Family Medicine | DX: E78.2 Mixed hyperlipidemia (principal); I10 Essential (primary) hypertension; M81.0 Age-related osteoporosis without current pathological fracture | CPT/HCPCS: 80048; 80061; 84460 ==

== ENCOUNTER 2024-09-15 14:34 | Outpatient (CLI) | payer MEDICARE, SELFPAY | END 2024-09-15 14:35 | disposition home or self-care (01) | LOC: RAD 14:35 | PROVIDERS: PCP Family Medicine; Visit Provider Family Medicine | DX: M81.0 Age-related osteoporosis without current pathological fracture (principal) | CPT/HCPCS: 77080 ==

== ENCOUNTER 2024-12-13 11:51 | Outpatient (CLI) | payer MEDICARE, SELFPAY ==
[2024-12-13 11:56] LABS: Appearance Urine Clear (Clear); Bilirubin Urine Negative (Negative); Blood Urine Negative (Negative); Color Urine Yellow (Yellow); Glucose Urine Negative (Negative); Ketones Urine Negative (Negative); Leukocyte Esterase Urine Negative (Negative); Nitrite Urine Negative (Negative); Protein Urine Negative (Negative); Specific Gravity Urine 1.015 (1.000-1.030); Urobilinogen Urine 0.2 (0.2-1.0)
== END 2024-12-13 11:52 | disposition home or self-care (01) ==
PROVIDERS: PCP Family Medicine; Visit Provider Obstetrics & Gynecology
DX: N81.4 Uterovaginal prolapse, unspecified (principal); N95.2 Postmenopausal atrophic vaginitis; N39.41 Urge incontinence
CPT/HCPCS: 81003; 87086

== ENCOUNTER 2025-02-01 09:49 | Outpatient (RCR) | payer MEDICARE, SELFPAY ==
--- NOTE | 2025-01-18 15:45 | ONC.NURNOTE ---
Patient called to schedule her next Prolia injection. Order for Prolia was not found. Contacted Dr. Fuentes's office to send us a new order. Dr. Fuentes was gone for the day but they left him a note to send a new order. Will contact patient once that order is received.
--- NOTE | 2025-01-25 15:51 | ONC.NURNOTE ---
On regimen review patient is scheduled for Prolia on 02/01. Patient has not had Calcium or Creatinine checked since 08/2024. RN called patient to update her that she will need labs and the wait time will be a little longer. No answer. LVM to call back to discuss appt on 02/01. Appt updated to include labs.
[2025-02-01 09:59] VITALS: BP 111/76; PULSE 84; RESP 16; TEMP 36.2; O2SAT 93
[2025-02-01 10:24] LABS: Creatinine* 0.7 mg/dL (0.5-1.5); Estimated Glomerular Filt Rate 86 ml/min
[2025-02-01 10:25] LABS: Calcium* 9.6 mg/dL (8.4-10.6)
[2025-02-01] MEDS: DENOSUMAB 60 MG/ML SYRINGE SUBCUT (10:50)
== END 2025-07-31 23:59 | disposition home or self-care (01) ==
LOC: CCIC 09:49
PROVIDERS: PCP Family Medicine; Visit Provider Clinical Nurse Specialist
DX: M81.0 Age-related osteoporosis without current pathological fracture (principal)
CPT/HCPCS: 36415; 82310; 82565; 96372; J0897

== ENCOUNTER 2025-07-28 10:39 | Outpatient (CLI) | payer MEDICARE, SELFPAY | END 2025-07-28 10:40 | disposition home or self-care (01) | PROVIDERS: PCP Family Medicine; Visit Provider Family Medicine | DX: I10 Essential (primary) hypertension (principal); E78.2 Mixed hyperlipidemia | CPT/HCPCS: 80048; 80061; 84460; 85025 ==